=== PATIENT | female | born 1945 | race Caucasian/White ===

== ENCOUNTER 2017-03-07 11:33 | Outpatient (CLI) | payer MEDICARE ==
[2012-11-16 17:50] VITALS: BP 179/57
[2017-03-07 11:57] LABS: BASOPHILS % 0.7 (0.0-1.5); EOSINOPHILS % 4.2 % (0.0-6.8); MEAN CORPUSCULAR HEMOGLOBIN 28.9 pg (28.0-34.0); MEAN CORPUSCULAR VOLUME 89.1 fl (80.0-100.0); MONOCYTES % 4.2 % (0.0-11.0); NEUTROPHILS # 4.5 # k/uL (1.4-7.7)
[2017-03-07 12:27] LABS: eGFR (African) > 60; eGFR (Non-African) > 60
== END 2017-03-07 11:34 ==
LOC: LAB 11:33
PROVIDERS: ATTEND Surgery
DX: I70.219 Atherosclerosis of native arteries of extremities with intermittent claudication, unspecified extremity (principal)
CPT/HCPCS: 36415; 80048; 85025